=== PATIENT | male | born 1965 | race Caucasian/White ===

== ENCOUNTER 2018-05-03 12:25 | Emergency (ER) | payer MEDICARE, SELFPAY ==
[2018-05-03 12:26] VITALS: BP 133/83; PULSE 69; RESP 18; TEMP 37.5; O2SAT 97; BMI 20.5
--- NOTE | 2018-05-03 12:48 | RAD_ITS ---
STUDY: X-RAY CHEST REASON FOR EXAM: Male, 52 years old. Productive cough, wheezing and fever. TECHNIQUE: PA and lateral views of the chest. COMPARISON: None. FINDINGS: EKG electrode are seen. Hyperinflation. The lungs are clear. There is no demonstrated pleural abnormality. Normal size heart. Normal mediastinum and davida. Normal visualized pulmonary arteries. Normal visualized aortic arch and descending thoracic aorta. Normal visualized thoracic spine. Normal visualized ribs, clavicles, and shoulders. There is no demonstrated abnormality of the visualized soft tissue structures of the upper abdomen. RAD/Chest PA and Lateral IMPRESSION: Normal x-ray examination of the chest. Electronically Signed: Braulio Ontiveros MD at 14:14 EST , Service support ,
[2018-05-03 13:00] VITALS: PULSE 99; RESP 25
[2018-05-03] MEDS: Ipratropium/Albuterol Sulfate 3 ML AMPUL.NEB INHALATION (13:00)
[2018-05-03] MEDS: Albuterol 2.5 MG/3 ML VIAL.NEB. INHALATION (13:00)
[2018-05-03 13:01] VITALS: O2SAT 97
[2018-05-03 13:26] LABS: Absolute Lymphocyte Count 1.92 X10^3/ul (0.83-4.51); Absolute Neutrophil Count 5.3 X10^3/uL (2.0-7.7); Basophil# 0.04 X10^3/uL; Basophil% 0.4 % (0-1); Eosinophil# 0.13 X10^3/uL; Eosinophils% 1.5 % (0-5); Hematocrit 39.5 % (40-54); Hemoglobin 13.3 g/dl (13.0-16.5); Lymphocyte # 1.92 X10^3/ul (4.0); Lymphocyte % 21.4 % (19-41); Mean Corp Hgb Conc 33.7 g/gl (32-36); Mean Corpuscular Hgb 33.3 pg (27.0-32.0); Mean Corpuscular Volume 98.8 fL (80-94); Monocyte% 17.9 % (0-10); Neutrophil # 5.26 X10^3/uL (2.7-7.7); Neutrophil % 58.7 % (47-70); Platelet Count 163 K/mm3 (150-450); RBC Distribution Width CV 11.8 % (11.6-14.6); RBC Distribution Width SD 42.1 fl (35.1-43.9)
[2018-05-03 13:27] LABS: Differential Indicated SCAN CRITERIA MET; POSITIVE COUNT NO; POSITIVE DIFFERENTIAL YES; POSITIVE MORPHOLOGY NO
[2018-05-03 13:28] LABS: Anion Gap 8 (5-15); BUN 9 mg/dL (7-18); BUN/Creat Ratio 10.5 RATIO (10-20); Calcium,Total 8.3 mg/dL (8.5-10.1); Chloride 101 mmol/L (98-107); Creatinine, Serum 0.86 mg/dL (0.70-1.30); EST Glomerular Filtration Rate 99 mL/min (>60); Est Glom Filt Rate - Afr Amer 120 mL/min (>60); Estimated Creatinine Clearance 85.05 ml/min; Glucose 122 mg/dL (74-106); Potassium 3.9 mmol/L (3.5-5.1); Sodium Level 137 mmol/L (136-145)
[2018-05-03 13:29] VITALS: BP 123/74; PULSE 97; RESP 18; TEMP 37.4; O2SAT 98
--- NOTE | 2018-05-03 13:47 | ED.VIS.GEN ---
History of Present Illness Chief Complaint: Cough Informant: Patient, Friend Onset: - - Onset of symptoms 7 days ago Context: Sudden Onset Timing: Continuous, - - Regarding illness. Cough has been intermittent and productive of green colored sputum Current Severity: Mild Maximum Severity: Moderate Worsened by: Coughing and activity Relieved by: Nothing Associated Symptoms: Subjective fever, rhinorrhea, congestion, postnasal drainage, sore throat Narrative: Patient is a middle-aged male who is a smoker. He is only had one cigarette in the last 24 hours. He has flulike symptoms that started approximately 1 week ago. He was seen at urgent care center and prescribed an albuterol metered-dose inhaler and instructed to administer 2 puffs twice a day. He was prescribed doxycycline. He presents because he feels worse. He denies history of PE or DVT. He denies leg pain, swelling discoloration. He denies photophobia, neck pain or neck stiffness. He does report mild frontal headache. Prior similar symptoms: Yes Recent Illness/Hospitalization: Yes - Seen yesterday at urgent care Past Medical History - Allergies and Home Meds Allergies/Adverse Reactions: Allergies aspirin Allergy (Verified 05/03/18 12:30) Swelling insulin glargine [From Basaglar KwikPen U-100 Insulin] Allergy (Verified 05/03/18 12:30) Shortness of breath Primary Care Physician: Rubén Portillo MD [Primary Care Provider] - Prior records reviewed: Yes Past Medical History: None Lives: Alone Smoking Status: Current every day smoker Alcohol: Rare Drugs: None Review of Systems General: Reports: Fever, Subjective. Denies: Chills, Sweats, Weight loss Eyes: Denies: Visual changes - bilaterally, Blurred vision - left, Diplopia ENT: Reports: Rhinorrhea. Denies: Bilateral ear pain, Sore throat Cardiovascular: Denies: Chest pain, Palpitations Respiratory: Reports: Dyspnea, Cough, Sputum, Dyspnea on exertion. Denies: Orthopnea, Paroxysmal nocturnal dyspnea Gastrointestinal: Denies: Abdominal pain, Nausea, Vomiting, Diarrhea, Melena, Hematochezia Genitourinary: Denies: Dysuria, Hematuria, Frequency Musculoskeletal: Denies: Neck pain, Back pain, Swelling, Extremity Pain Skin: Denies: Rash, Wounds Neurological: Reports: Headache, Weakness. Denies: Parasthesia, Numbness Hematologic: Denies: Easy bruising, Easy bleeding Allergy: Denies: Uticaria, Swelling of the mouth, Swelling of the tongue Physical Exam Vital Signs/Narrative: Vital Signs Temp Pulse Resp BP Pulse Ox 05/03/18 13:00 99 25 H 05/03/18 12:26 99.5 F H 69 18 133/83 H 97 Inital Vital Signs reviewed: Yes General: Well nourished, Well developed, No Acute Distress, - - Patient has a hoarse voice Head: Normocephalic, Atraumatic Eyes: Perrl, EOMI. Negative for: Pale conjunctiva, Scleral icterus ENT: Moist mucous membranes, Nasal congestion, - - Drainage is clear bilaterally. Negative for: No rhinorrhea, Sinus tenderness Neck: Supple, Nontender, No lymphadenopathy, No JVD Cardiovascular: Regular rate, Regular rhythm, No murmurs, Normal S1, Normal S2 Respiratory: No distress, Wheezing, Decreased Air Movement, - - With increased expiratory phase. Negative for: CTA bilaterally Abdomen: Soft, Nontender, Nondistended, Normal bowel sounds, No masses. Negative for: Hepatomegaly, Splenomegaly Back: Nontender, Normal Inspection Extremities: Nontender, No edema, - - There is no asymmetry, swelling, discoloration, leg vein distention, palpable cords or tenderness along the distribution of the deep venous system.. Negative for: Edema Skin: Normal color, No rash Neurological: Alert, Oriented x3, Cranial nerves II-XII grossly intact, Normal Strength, Normal Sensation. Negative for: Confused, Disoriented Psychological: Normal affect, Normal Mood Diagnostic/Tx/Re-eval Chest X-Ray - ED: 2 View 2 view chest x-ray interpreted by me at 1350 reveals hyperaeration. Cardiac silhouette normal. Mediastinum normal. There is minimal chronic changes noted. Osseous structures are normal. CBC is normal. Basic metabolic panel reveals slight elevation of glucose of 122. - Rhythm Strip Rhythm Strip: Sinus Rhythm Rate: 75 Ectopy: None - Medical Decision Making With complaint of dyspnea, dyspnea on exertion productive cough and wheezing chest x-ray was obtained. He was treated with a DuoNeb and albuterol aerosol treatment. He received a dose of Decadron. He states he does not want to be discharged on prednisone because last time he was prescribed prednisone he went into DKA. Since he is diabetic basic metabolic panel was obtained. Because he reports temperature to 102.0 degrees CBC was obtained. Since he is outside the window for treatment for influenza and his present antibiotics rapid influenza screen was not performed. Patient was reassessed at 1400. He still has residual wheezing. He did receive Decadron which will be effective for 48-72 hours. He was instructed to continue taking doxycycline. He was instructed to use his inhaler more frequently than twice a day. ED Disposition - Plan for ED Patient: Diagnosis: Purulent bronchitis, Bronchospasm, acute, Febrile respiratory illness Instructions: ED Bronchitis Asthmatic Referrals: Rubén Portillo MD [Primary Care Provider] - 1 Week if not improving Additional Instructions: 2 puffs of inhaler every 2-4 hours while awake for the next 3 days then every 4 hours as needed for wheezing or shortness of breath. Take antibiotics until gone.
[2018-05-03 14:29] VITALS: BP 108/73; PULSE 82; RESP 20; TEMP 37.6; O2SAT 94
[2018-05-03 14:34] VITALS: BP 108/73; PULSE 82; RESP 20; O2SAT 94
== END 2018-05-03 14:36 | disposition home or self-care (01) ==
PROVIDERS: Emergency Provider Emergency Medicine; Family Provider Family Medicine; PCP Family Medicine
DX: J41.1 Mucopurulent chronic bronchitis (principal); J98.01 Acute bronchospasm; R50.9 Fever, unspecified; E11.9 Type 2 diabetes mellitus without complications; F17.210 Nicotine dependence, cigarettes, uncomplicated
CPT/HCPCS: 71046; 80048; 85025; 94640; 99284; A4216